=== PATIENT | female | born 1945 | race Caucasian/White ===

== ENCOUNTER 2024-06-13 09:46 | Emergency (ER) | payer MEDICARE, OTHER, SELFPAY ==
[2024-06-13 09:49] VITALS: BP 135/79; PULSE 86; RESP 18; TEMP 36.9; O2SAT 96; BMI 25.7
--- NOTE | 2024-06-13 11:04 | ED.CHESTPAIN ---
HPI - Chest Pain General Chief Complaint: Chest Pain Stated Complaint: chest pains Time Seen by Provider: 06/13/24 09:55 History of Present Illness HPI narrative: This 78-year-old female comes in reporting left lower anterior chest pain that seems to come and go over the past 5 days. She states that this happened after shoveling snow. She does not report any nausea, vomiting, lightheadedness, shortness of breath, or diaphoresis. She states that she has good exercise tolerance. She does report significant anxiety and is currently starting to take Lexapro. She feels that this is helping her anxiety. Related Data Home Medications ?Medication ?Instructions ?Recorded ?Confirmed aspirin 81 mg capsule 81 mg PO DAILY 06/13/24 06/13/24 escitalopram oxalate 10 mg tablet mg PO 06/13/24 rosuvastatin 20 mg tablet 20 mg PO QPM 06/13/24 06/13/24 Allergies Allergy/AdvReac Type Severity Reaction Status Date / Time Sulfa (Sulfonamide Allergy Verified 06/13/24 09:56 Antibiotics) Review of Systems Status of ROS Reports: 10 or more systems reviewed and unremarkable except as noted in History and below Narrative Constitutional: No fevers, no weight gain or loss. Eyes: No discharge. No vision changes. HENT: No congestion, no sore throat, no ear pain. Cardiovascular: No palpitations. Chest discomfort as described above. Respiratory: No shortness of breath, no wheezes, no cough. Gastrointestinal: No abdominal pain, no vomiting, no diarrhea. Genitourinary: No dysuria, no hematuria. Musculoskeletal: Normal range of motion. Skin: No rashes, no pruritis. Neurological: No dizziness, weakness, sensory change, speech change. Endo/Heme/Allergies: No bruising or bleeding. No polydipsia. Pysch: no suicidality, no insomnia. She reports anxiety symptoms. All other systems reviewed and are negative. [facility] Social History Smoking Status: Never smoker Do you use any of these nicotine containing products: None How often do you have a drink containing alcohol: never How often do you have six or more drinks on one occasion: Never AUDIT-C Alcohol total score: 0 Non-prescribed substance use: denies use service: No Exam Narrative Exam Narrative: Constitutional: Well-developed, well-nourished, no acute distress. HEENT: Normocephalic, atraumatic. Neck: Normal range of motion. Nontender. Supple. Heart: Regular. No murmurs. Normal rate. Intact distal pulses. Lungs: Clear to auscultation. No chest discomfort currently. No wheezes, rhonchi, or rales. Abdomen: Normal bowel sounds. Nontender. No rebound tenderness. Genitalia: Deferred. Back: No midline tenderness. Normal range of motion. Extremities: Normal range of motion. No injury. Skin: Intact. No rash. Warm. No erythema or pallor. Neurologic: No altered sensation. No weakness. Alert and oriented. Psychiatric: No suicidality. No insomnia. Nursing notes and vitals signs are reviewed. Const Vital Signs, click to edit/add: Vital Signs - 24 hr 06/13/24 09:49 Temperature 98.4 F Pulse Rate [Right Pulse Oximeter] 86 Respiratory Rate 18 Blood Pressure [Right Upper Arm] 135/79 Pulse Oximetry 96 Oxygen Delivery Method Room Air Course Vital Signs Vital signs: Initial Vital Signs Temperature 98.4 F 06/13/24 09:49 Temperature Source Temporal Artery Scan 06/13/24 09:49 Pulse Rate 86 06/13/24 09:49 Pulse Rhythm Regular 06/13/24 09:49 Respiratory Rate 18 06/13/24 09:49 Blood Pressure 135/79 06/13/24 09:49 Blood Pressure Mean 97 06/13/24 09:49 Blood Pressure Position Sitting 06/13/24 09:49 Pulse Oximetry 96 06/13/24 09:49 Oxygen Delivery Method Room Air 06/13/24 09:49 Vital Signs Temperature 98.4 F 06/13/24 09:49 Pulse Rate 86 06/13/24 09:49 Respiratory Rate 18 06/13/24 09:49 Blood Pressure 135/79 06/13/24 09:49 Pulse Oximetry 96 06/13/24 09:49 Oxygen Delivery Method Room Air 06/13/24 09:49 Temperature 98.4 F 06/13/24 09:49 Pulse Rate 86 06/13/24 09:49 Respiratory Rate 18 06/13/24 09:49 Blood Pressure 135/79 06/13/24 09:49 Pulse Oximetry 96 06/13/24 09:49 Oxygen Delivery Method Room Air 06/13/24 09:49 MDM - Chest Pain MDM Narrative Medical decision making narrative: This patient comes in with chest discomfort as described above. Her EKG and troponin returned with normal results. Her symptoms are much more likely to be musculoskeletal. She does not have any exercise intolerance and has no prior heart history. She does not describe any associated symptoms with activity. She is reassured with these results and feels okay to return home. I did describe signs and symptoms that would indicate need for return and re-evaluation. Lab Data Labs: Lab Results 06/13/24 Range/Units 10:14 POC Troponin I 0.00 L (0.01-0.04) ng/ml ECG Data Attestation: I personally reviewed and interpreted this ECG as follows: Interpretation: Normal sinus rhythm. Rate is 88 beats per minute. There are no ST or T-wave abnormalities. Discharge Plan Discharge Clinical Impression: Atypical chest pain Patient Disposition: Home, Self-Care Condition: Stable Additional Instructions: Use [id number] medicines as needed and directed. Activity as tolerated. Follow up with MD return if worsening. Prescriptions: No Action escitalopram oxalate 10 mg tablet PO rosuvastatin 20 mg tablet 20 mg PO QPM aspirin 81 mg capsule 81 mg PO DAILY Stand Alone Forms: [employer] [facility] [employer] Info Instructions
== END 2024-06-13 11:25 | disposition home or self-care (01) ==
LOC: ED 11:27
PROVIDERS: Emergency Provider Emergency Medicine Emergency Medical Services
DX: R07.9 Chest pain, unspecified (principal); Y93.H1 Activity, digging, shoveling and raking
CPT/HCPCS: 84484; 93005; 99284